=== PATIENT | male | born 1940 | race Caucasian/White ===

== ENCOUNTER 2018-02-20 01:26 | Day surgery (SDC) | payer OTHER ==
[~2018-02-20] VITALS: Ht 152.4 cm; Wt 75.0 kg
[~2018-02-20 01:26] MED LIST: ALBU90OI INH; AMLO5 PO; AMOCLA875 PO; ASPI81CH PO; ASPI81EC PO; ATOR10 PO; ATOR20 PO; BENZ100A PO; CLAR500 PO; DOCU100 PO; FIBE4P PO; FLUSAL2505 INH; GLIP2.5ER PO; GLIP5ER PO; GLYB3; HYDACE10B PO; HYDACE5325 PO; IBUP800 PO; INSUASPI SC; LISI10 PO; LISI20 PO; LISI5 PO; LISINOPRIL PO; METF500; METF500 PO; METFORMIN PO; METO100ER; METO50 PO; OMEP20ER PO; POLY17UD PO; PRAV20 PO; PRED20 PO; RAME8 PO; ROSU5 PO; RXAMOCLASU PO; SODCHL.65S; TAMS.4ER PO; TEMA15 PO; TEMA30 PO; TRADJENTA5 MG PO; TRAZ50 PO; TUSSIN DM COUG PO
[2018-02-20] MEDS ORDERED: ASPI81CH PO (12:55)
== END 2018-02-20 14:39 | disposition home or self-care (01) ==
LOC: MHTC 01:26
PROC: B213YZZ Fluoroscopy of Multiple Coronary Artery Bypass Grafts using Other Contrast (ICD-10-PCS; principal; 2018-02-20)
PROC: 4A023N7 Measurement of Cardiac Sampling and Pressure, Left Heart, Percutaneous Approach (ICD-10-PCS; principal; 2018-02-20)
PROC: B211YZZ Fluoroscopy of Multiple Coronary Arteries using Other Contrast (ICD-10-PCS; principal; 2018-02-20)
DX: I25.10 Atherosclerotic heart disease of native coronary artery without angina pectoris (principal); I35.0 Nonrheumatic aortic (valve) stenosis; E11.9 Type 2 diabetes mellitus without complications; E78.5 Hyperlipidemia, unspecified; I11.0 Hypertensive heart disease with heart failure; I50.9 Heart failure, unspecified; R55 Syncope and collapse; F17.210 Nicotine dependence, cigarettes, uncomplicated; Z79.84 Long term (current) use of oral hypoglycemic drugs
CPT/HCPCS: 93455; 99152; 99153; C1760; C1769; J1644; J2250; J3010; J7030; Q9967

== ENCOUNTER 2018-06-06 00:31 | Inpatient (IN) | payer OTHER ==
[~2018-06-06] VITALS: Ht 152.4 cm; Wt 72.6 kg
[2018-06-06 01:19] LABS: Hemoglobin 11.6 g/dL (13.5-17.5); Mean Corpuscular HGB 31.6 pg (26.0-34.0); Mean Corpuscular HGB Conc 33.1 g/dL (31.5-36.5); Mean Corpuscular Volume 95 fL (80-100); Mean Platelet Volume 10.7 fL (9.1-12.4); Platelet Count 181 K/mm3 (150-400); RDW Coefficient Variation 13.2 % (11.7-14.2); RDW Standard Deviation 46.4 fL (35.1-46.3); Red Blood Cell Count 3.67 M/mm3 (4.30-5.90); White Blood Cell Count 3.33 K/mm3 (4.00-11.30)
[2018-06-06 01:31] LABS: Albumin, Blood 3.2 g/dL (3.4-5.0); Albumin/Globulin Ratio 0.8 (0.8-1.8); Bilirubin, Total 0.4 mg/dL (0.1-1.0); Calcium, Blood 8.3 mg/dL (8.5-10.1); Creatinine, Blood 2.06 mg/dL (0.60-1.20); Potassium, Blood 4.6 mmol/L (3.5-5.5); Total Protein, Blood 7.2 g/dL (6.4-8.2)
[2018-06-06 01:49] LABS: BAND PERCENT MAN 21 % (0-8); BASOPHILS PERCENT MAN 0 % (0-2); EOSINOPHILS PERCENT MAN 0 % (0-6); LYMPHOCYTES ABSOLUTE MAN 0.29 K/mm3 (0.84-5.20); LYMPHOCYTES PERCENT MAN 9 % (21-46); METAMYELOCYTE ABSOLUTE MAN 0.03 K/mm3 (0.00-0.00); METAMYELOCYTE PERCENT MAN 1 % (0-0); MONOCYTES ABSOLUTE MAN 0.36 K/mm3 (0.16-1.47); MONOCYTES PERCENT MAN 11 % (4-13); NEUTROPHILS ABSOLUTE MAN 2.63 K/mm3 (1.96-9.15); SEG NEUTROPHILS PERCENT MAN 58 % (41-73); TOTAL CELLS COUNTED 100
[2018-06-06] MEDS ORDERED: LISI20 PO (04:22)
[2018-06-06] MEDS ORDERED: AMLO5 PO (04:22)
[2018-06-06] MEDS ORDERED: ASPI81CH PO (04:22)
[2018-06-06] MEDS ORDERED: RAME8 PO (04:22)
[2018-06-06] MEDS ORDERED: TAMS.4ER PO (04:23)
[2018-06-06] MEDS ORDERED: Sulfamethoxazo1 EAC4 PO (04:23)
[2018-06-06] MEDS ORDERED: TRADJENTA5 MG PO (04:23)
[2018-06-06] MEDS ORDERED: PRAV20 PO (04:24)
[2018-06-06] MEDS ORDERED: GABA100 PO (04:24)
[2018-06-06] MEDS ORDERED: Hydrocodone-Ap1 EA20 PO (04:24)
[2018-06-06] MEDS ORDERED: Omeprazole20 M1 PO (04:25)
[2018-06-07 05:08] LABS: BASOPHILS ABSOLUTE AUTO 0.01 K/mm3 (0.00-0.23); BASOPHILS PERCENT AUTO 0 % (0-2); Hematocrit 29.6 % (37.0-53.0); Hemoglobin 9.6 g/dL (13.5-17.5); LYMPHOCYTES ABSOLUTE AUTO 0.86 K/mm3 (0.84-5.20); LYMPHOCYTES PERCENT AUTO 17 % (21-46); MONOCYTES PERCENT AUTO 8 % (4-13); Mean Corpuscular HGB Conc 32.4 g/dL (31.5-36.5); Mean Corpuscular Volume 96 fL (80-100); Mean Platelet Volume 10.6 fL (9.1-12.4); Platelet Count 136 K/mm3 (150-400); RDW Coefficient Variation 13.2 % (11.7-14.2); RDW Standard Deviation 45.7 fL (35.1-46.3); White Blood Cell Count 4.95 K/mm3 (4.00-11.30)
[2018-06-07 05:10] LABS: EOSINOPHILS ABSOLUTE AUTO 0.01 K/mm3 (0.00-0.68); EOSINOPHILS PERCENT AUTO 0 % (0-6); IMMATURE GRAN ABSOLUTE AUTO 0.01 K/mm3 (0.00-0.10); IMMATURE GRAN PERCENT AUTO 0 % (0-1); NEUTROPHILS ABSOLUTE AUTO 3.66 K/mm3 (1.96-9.15); NEUTROPHILS PERCENT AUTO 74 % (41-73)
[2018-06-07 05:34] LABS: Calcium, Blood 7.6 mg/dL (8.5-10.1); Creatinine, Blood 1.37 mg/dL (0.60-1.20); Potassium, Blood 3.6 mmol/L (3.5-5.5)
[2018-06-07 17:15] LABS: Source, Urine Clean Catch
[2018-06-07 17:21] LABS: Appearance, Urine Clear (Clear); Bilirubin, Urine Neg (Neg); Blood, Urine Neg (Neg); Color, Urine Yellow (P-Yellow); Glucose Qualitative, Urine 2+ (Neg); Ketones, Urine Neg (Neg); Leukocyte Esterase, Urine Neg (Neg); Nitrite, Urine Neg (Neg); Protein, Urine 2+ (Neg); Specific Gravity, Urine 1.005 (1.003-1.022); Urobilinogen, Urine NORM (Normal)
[2018-06-07 17:36] LABS: Bacteria Rare /hpf; Red Blood Cells, Urine Not Seen /hpf (0-2); Squamous Epithelial Cells Few /hpf (Few)
[2018-06-08 04:38] LABS: Hemoglobin 9.1 g/dL (13.5-17.5); Mean Corpuscular HGB 31.6 pg (26.0-34.0); Mean Corpuscular HGB Conc 32.5 g/dL (31.5-36.5); Mean Corpuscular Volume 97 fL (80-100); Mean Platelet Volume 10.6 fL (9.1-12.4); Platelet Count 118 K/mm3 (150-400); RDW Coefficient Variation 12.9 % (11.7-14.2); RDW Standard Deviation 46.5 fL (35.1-46.3); Red Blood Cell Count 2.88 M/mm3 (4.30-5.90); White Blood Cell Count 5.99 K/mm3 (4.00-11.30)
[2018-06-08 04:52] LABS: Anion Gap 7 mmol/L (6-16); Blood Urea Nitrogen 16 mg/dL (8-24); CO2, Blood 29 mmol/L (21-32); Calcium, Blood 7.7 mg/dL (8.5-10.1); Chloride, Blood 104 mmol/L (98-108); Creatinine, Blood 1.07 mg/dL (0.60-1.20); Glomerular Filtration Rate >60 (60-); Glucose, Blood 123 mg/dL (70-99); Potassium, Blood 3.5 mmol/L (3.5-5.5); Sodium, Blood 140 mmol/L (136-145)
[2018-06-08] MEDS ORDERED: AMOCLA500 PO (11:49)
== END 2018-06-08 12:25 | disposition home or self-care (01) | DRG 350 ==
LOC: ER 00:31 → EDBEDREQSVC 03:20 → MEDS 03:21 → SURS 04:20 → MEDS 04:25 → SURS 10:48
PROVIDERS: Emergency Medicine; Internal Medicine; Surgery
PROC: 0YU50JZ Supplement Right Inguinal Region with Synthetic Substitute, Open Approach (ICD-10-PCS; principal; 2018-06-06 07:00)
DX: K40.30 Unilateral inguinal hernia, with obstruction, without gangrene, not specified as recurrent (principal); J69.0 Pneumonitis due to inhalation of food and vomit; I13.0 Hypertensive heart and chronic kidney disease with heart failure and stage 1 through stage 4 chronic kidney disease, or unspecified chronic kidney disease; N17.9 Acute kidney failure, unspecified; I50.32 Chronic diastolic (congestive) heart failure; I25.10 Atherosclerotic heart disease of native coronary artery without angina pectoris; J44.9 Chronic obstructive pulmonary disease, unspecified; E78.5 Hyperlipidemia, unspecified; N18.9 Chronic kidney disease, unspecified; K21.9 Gastro-esophageal reflux disease without esophagitis; M19.90 Unspecified osteoarthritis, unspecified site; D63.1 Anemia in chronic kidney disease; E11.22 Type 2 diabetes mellitus with diabetic chronic kidney disease; I35.0 Nonrheumatic aortic (valve) stenosis; G89.4 Chronic pain syndrome; N40.0 Benign prostatic hyperplasia without lower urinary tract symptoms; G47.00 Insomnia, unspecified; F17.210 Nicotine dependence, cigarettes, uncomplicated; Z86.73 Personal history of transient ischemic attack (TIA), and cerebral infarction without residual deficits; Z79.82 Long term (current) use of aspirin; Z79.899 Other long term (current) drug therapy; Z88.5 Allergy status to narcotic agent; Z88.8 Allergy status to other drugs, medicaments and biological substances; Z95.1 Presence of aortocoronary bypass graft
CPT/HCPCS: 36415; 71046; 74176; 80048; 80053; 81001; 82947; 83690; 85025; 85027; 93005; 93010; 96374; 96375; 99285-25; C1781; C9113; J0295; J0330; J1815; J2250; J2370; J2405; J2550; J2710; J2765; J3010; J7030

== ENCOUNTER 2019-08-14 11:29 | Emergency (ER) | payer OTHER ==
[~2019-08-14] VITALS: Ht 152.4 cm; Wt 72.6 kg
[~2019-08-14 11:29] MED LIST changes: +AMOCLA500 PO; +GABA100 PO; +Hydrocodone-Ap1 EA20 PO; +Omeprazole20 M1 PO; +Sulfamethoxazo1 EAC4 PO
[2019-08-14 11:53] LABS: BASOPHILS ABSOLUTE AUTO 0.05 K/mm3 (0.00-0.23); BASOPHILS PERCENT AUTO 1 % (0-2); EOSINOPHILS ABSOLUTE AUTO 0.16 K/mm3 (0.00-0.68); EOSINOPHILS PERCENT AUTO 3 % (0-6); Hematocrit 34.7 % (37.0-53.0); Hemoglobin 11.3 g/dL (13.5-17.5); IMMATURE GRAN ABSOLUTE AUTO 0.02 K/mm3 (0.00-0.10); IMMATURE GRAN PERCENT AUTO 0 % (0-1); LYMPHOCYTES PERCENT AUTO 30 % (21-46); MONOCYTES ABSOLUTE AUTO 0.21 K/mm3 (0.16-1.47); MONOCYTES PERCENT AUTO 3 % (4-13); Mean Corpuscular HGB 32.3 pg (26.0-34.0); Mean Corpuscular HGB Conc 32.6 g/dL (31.5-36.5); Mean Corpuscular Volume 99 fL (80-100); Mean Platelet Volume 10.7 fL (9.1-12.4); NEUTROPHILS PERCENT AUTO 63 % (41-73); Platelet Count 116 K/mm3 (150-400); RDW Coefficient Variation 12.9 % (11.7-14.2); RDW Standard Deviation 46.8 fL (35.1-46.3); White Blood Cell Count 6.24 K/mm3 (4.00-11.30)
[2019-08-14 12:02] LABS: Alanine Aminotransfer (ALT/SGP 17 U/L (12-78); Albumin, Blood 3.2 g/dL (3.4-5.0); Alk Phos 71 U/L (50-136); Anion Gap 6 mmol/L (6-16); Aspartate Aminotrans (AST/SGOT 15 U/L (12-37); Bilirubin, Total 0.2 mg/dL (0.1-1.0); Blood Urea Nitrogen 11 mg/dL (8-24); Bun/Creatinine Ratio 11.8 (12.0-20.0); CO2, Blood 23 mmol/L (21-32); Calcium, Blood 7.9 mg/dL (8.5-10.1); Chloride, Blood 112 mmol/L (98-108); Creatinine, Blood 0.93 mg/dL (0.60-1.20); Globulin, Blood 3.1 g/dL (2.2-4.0); Glomerular Filtration Rate >60 (60-); Glucose, Blood 215 mg/dL (70-99); Potassium, Blood 3.9 mmol/L (3.5-5.5); Sodium, Blood 141 mmol/L (136-145); Total Protein, Blood 6.3 g/dL (6.4-8.2); Troponin I <0.015 ng/mL (0.000-0.040)
[2019-08-14] MEDS ORDERED: TRAZ50 PO (12:04)
[2019-08-14] MEDS ORDERED: Prednisone20 MG PO (14:21)
[2019-08-14] MEDS ORDERED: ALBU90OI INH (14:21)
[2019-08-14] MEDS ORDERED: Pulmicort Flex90 MCG NEB (14:21)
== END 2019-08-14 14:37 | disposition home or self-care (01) ==
LOC: ER 11:29
PROVIDERS: Emergency Medicine
DX: J44.9 Chronic obstructive pulmonary disease, unspecified (principal); E11.9 Type 2 diabetes mellitus without complications; I50.9 Heart failure, unspecified; F17.200 Nicotine dependence, unspecified, uncomplicated; Z86.73 Personal history of transient ischemic attack (TIA), and cerebral infarction without residual deficits; Z88.5 Allergy status to narcotic agent; Z79.899 Other long term (current) drug therapy; Z79.82 Long term (current) use of aspirin
CPT/HCPCS: 36415; 71046; 80053; 83880; 84484; 85025; 93005; 93010; 94640; 99285-25

== ENCOUNTER 2019-12-01 06:00 | Day surgery (SDC) | payer OTHER ==
[~2019-12-01] VITALS: Ht 152.4 cm; Wt 76.8 kg
[~2019-12-01 06:00] MED LIST changes: +Prednisone20 MG PO; +Pulmicort Flex90 MCG NEB
--- NOTE | 2019-12-01 07:25 | NUR ---
Ambulatory in Day Surgery. Surgical site prepped with 2% Chlorhexidine cloth wipe. History, Chart, Medications and Allergies reviewed before start of procedure.Patient confirms NPO status and agrees with scheduled surgery. Pre-Op teaching done. Pt verbalizes understanding. Patient States Post-Procedure ride home has been arranged. Patient reports completing Chlorhexadine shower X2 prior to admission to hospital. THE PATIENT WAS GIVEN A BREATHING TREATMENT BEFORE SURGERY.
--- NOTE | 2019-12-01 12:30 | NUR ---
patient godfrey was called and told patient was ready for discharge and she said she would be on her way shortly.
--- NOTE | 2019-12-01 13:36 | NUR ---
Patient up to Ambulate independently. Gait steady. Discharge instructions reviewed with patient. Patient verbalizes understanding. Copy given to patient to take home. Dressing to procedure site clean, dry, intact with no visible drainage, swelling, erythema or bruising noted. Patient States Post-Procedure ride home has been arranged with Billie, patient is currently awaiting contact centre supervisor.
--- NOTE | 2019-12-02 08:37 | NUR ---
12/02/19 0837 Mary Martinez VERIFICATIONS: EDIT CHART.
== END 2019-12-01 22:49 | disposition home or self-care (01) ==
LOC: ORSCMMR 06:00 → ORD 07:30 → ORSCMMR 07:30
PROVIDERS: Surgery
PROC: 0YU54JZ Supplement Right Inguinal Region with Synthetic Substitute, Percutaneous Endoscopic Approach (ICD-10-PCS; principal; 2019-12-01 07:30)
PROC: 8E0W4CZ Robotic Assisted Procedure of Trunk Region, Percutaneous Endoscopic Approach (ICD-10-PCS; principal; 2019-12-01 07:30)
DX: K40.91 Unilateral inguinal hernia, without obstruction or gangrene, recurrent (principal); I10 Essential (primary) hypertension; E11.9 Type 2 diabetes mellitus without complications; N18.9 Chronic kidney disease, unspecified; I25.10 Atherosclerotic heart disease of native coronary artery without angina pectoris; J44.9 Chronic obstructive pulmonary disease, unspecified; F17.210 Nicotine dependence, cigarettes, uncomplicated; Z79.899 Other long term (current) drug therapy; Z79.82 Long term (current) use of aspirin; Z86.73 Personal history of transient ischemic attack (TIA), and cerebral infarction without residual deficits
CPT/HCPCS: 49651; S2900; 82947; C1781; J0690; J2405; J2704; J2765; J3010; J7030; J7120

== ENCOUNTER 2020-04-11 00:11 | Day surgery (SDC) | payer OTHER | END 2020-04-11 22:37 | disposition home or self-care (01) | LOC: WOUND 00:11 | DX: S81.801A Unspecified open wound, right lower leg, initial encounter (principal); X58.XXXA Exposure to other specified factors, initial encounter | CPT/HCPCS: G0463 ==

== ENCOUNTER 2020-06-30 00:32 | Day surgery (SDC) | payer OTHER | END 2020-06-30 12:00 | disposition home or self-care (01) | LOC: WOUND 00:32 | DX: S81.801D Unspecified open wound, right lower leg, subsequent encounter (principal); E11.622 Type 2 diabetes mellitus with other skin ulcer; L97.211 Non-pressure chronic ulcer of right calf limited to breakdown of skin; L97.111 Non-pressure chronic ulcer of right thigh limited to breakdown of skin; E11.42 Type 2 diabetes mellitus with diabetic polyneuropathy; I13.0 Hypertensive heart and chronic kidney disease with heart failure and stage 1 through stage 4 chronic kidney disease, or unspecified chronic kidney disease; E11.22 Type 2 diabetes mellitus with diabetic chronic kidney disease; J44.9 Chronic obstructive pulmonary disease, unspecified; I50.9 Heart failure, unspecified; N18.9 Chronic kidney disease, unspecified; F17.200 Nicotine dependence, unspecified, uncomplicated; Z79.899 Other long term (current) drug therapy; Z79.84 Long term (current) use of oral hypoglycemic drugs | CPT/HCPCS: G0463 ==

== ENCOUNTER 2020-07-06 00:15 | Day surgery (SDC) | payer OTHER | END 2020-07-06 22:36 | disposition home or self-care (01) | LOC: WOUND 00:15 | DX: S81.801D Unspecified open wound, right lower leg, subsequent encounter (principal); L97.211 Non-pressure chronic ulcer of right calf limited to breakdown of skin; L97.111 Non-pressure chronic ulcer of right thigh limited to breakdown of skin | CPT/HCPCS: G0463 ==

== ENCOUNTER 2020-07-27 00:48 | Day surgery (SDC) | payer OTHER | END 2020-07-27 12:00 | disposition home or self-care (01) | LOC: WOUND 00:48 | DX: S81.801D Unspecified open wound, right lower leg, subsequent encounter (principal); E11.42 Type 2 diabetes mellitus with diabetic polyneuropathy; E11.22 Type 2 diabetes mellitus with diabetic chronic kidney disease; I13.0 Hypertensive heart and chronic kidney disease with heart failure and stage 1 through stage 4 chronic kidney disease, or unspecified chronic kidney disease; J44.9 Chronic obstructive pulmonary disease, unspecified; N18.9 Chronic kidney disease, unspecified; I50.9 Heart failure, unspecified; F17.200 Nicotine dependence, unspecified, uncomplicated; E66.9 Obesity, unspecified; Z68.34 Body mass index [BMI] 34.0-34.9, adult; Z79.899 Other long term (current) drug therapy; Z79.82 Long term (current) use of aspirin | CPT/HCPCS: G0463 ==

== ENCOUNTER 2020-09-25 20:38 | Emergency (ER) | payer OTHER ==
[~2020-09-25] VITALS: Ht 152.4 cm; Wt 72.6 kg
[2020-09-25] MEDS ORDERED: MUPIROCIN15 GM TOP (22:45)
== END 2020-09-25 23:45 | disposition home or self-care (01) ==
LOC: ER 20:38
DX: L30.9 Dermatitis, unspecified (principal); E11.9 Type 2 diabetes mellitus without complications; I50.9 Heart failure, unspecified; F17.210 Nicotine dependence, cigarettes, uncomplicated; Z95.1 Presence of aortocoronary bypass graft; Z86.73 Personal history of transient ischemic attack (TIA), and cerebral infarction without residual deficits; Z79.82 Long term (current) use of aspirin; Z79.899 Other long term (current) drug therapy; Z88.5 Allergy status to narcotic agent
CPT/HCPCS: 99283

== ENCOUNTER → 2020-09-26 | Outpatient (CLI) | payer OTHER ==
[~2020-09-26] MED LIST changes: +MUPIROCIN15 GM TOP
[2020-09-26 15:02] LABS: Source, Urine Clean Catch
[2020-09-26 17:52] LABS: Appearance, Urine Clear (Clear); Bilirubin, Urine Neg (Neg); Blood, Urine Neg (Neg); Color, Urine Yellow (P-Yellow); Glucose Qualitative, Urine 3+ (Neg); Ketones, Urine 1+ (Neg); Leukocyte Esterase, Urine Neg (Neg); Nitrite, Urine Neg (Neg); Protein, Urine 2+ (Neg); Specific Gravity, Urine 1.015 (1.003-1.022); Urobilinogen, Urine NORM (Normal); pH, Urine 6.5 (5.0-8.0)
[2020-09-26 18:14] LABS: Bacteria Not Seen /hpf; Red Blood Cells, Urine Not Seen /hpf (0-2); Squamous Epithelial Cells Few /hpf (Few); White Blood Cells, Urine Not Seen /hpf (0-5)
== END | disposition home or self-care (01) ==
LOC: LAB SHORT 13:59 → LAB 13:59
PROVIDERS: Family Medicine
DX: R30.9 Painful micturition, unspecified (principal)
CPT/HCPCS: 81001

== ENCOUNTER 2021-09-20 11:17 | Emergency (ER) | payer OTHER ==
[~2021-09-20] VITALS: Ht 157.5 cm; Wt 68.0 kg
[2021-09-20 12:05] LABS: BASOPHILS ABSOLUTE AUTO 0.04 K/mm3 (0.00-0.23); BASOPHILS PERCENT AUTO 1 % (0-2); EOSINOPHILS ABSOLUTE AUTO 0.09 K/mm3 (0.00-0.68); EOSINOPHILS PERCENT AUTO 1 % (0-6); Hematocrit 34.9 % (37.0-53.0); Hemoglobin 11.4 g/dL (13.5-17.5); IMMATURE GRAN ABSOLUTE AUTO 0.01 K/mm3 (0.00-0.10); IMMATURE GRAN PERCENT AUTO 0 % (0-1); LYMPHOCYTES ABSOLUTE AUTO 2.07 K/mm3 (0.84-5.20); LYMPHOCYTES PERCENT AUTO 31 % (21-46); MONOCYTES ABSOLUTE AUTO 0.33 K/mm3 (0.16-1.47); MONOCYTES PERCENT AUTO 5 % (4-13); Mean Corpuscular HGB 31.1 pg (26.0-34.0); Mean Corpuscular HGB Conc 32.7 g/dL (31.5-36.5); Mean Corpuscular Volume 95 fL (80-100); Mean Platelet Volume 11.2 fL (9.1-12.4); NEUTROPHILS ABSOLUTE AUTO 4.07 K/mm3 (1.96-9.15); NEUTROPHILS PERCENT AUTO 62 % (41-73); Platelet Count 123 K/mm3 (150-400); RDW Coefficient Variation 13.9 % (11.7-14.2); RDW Standard Deviation 49.1 fL (35.1-46.3); Red Blood Cell Count 3.67 M/mm3 (4.30-5.90); White Blood Cell Count 6.61 K/mm3 (4.00-11.30)
[2021-09-20 12:18] LABS: Alanine Aminotransfer (ALT/SGP 15 U/L (12-78); Albumin, Blood 3.3 g/dL (3.4-5.0); Albumin/Globulin Ratio 0.9 (0.8-1.8); Alk Phos 95 U/L (50-136); Anion Gap 5 mmol/L (6-16); Aspartate Aminotrans (AST/SGOT 27 U/L (12-37); Bilirubin, Total 0.5 mg/dL (0.1-1.0); Blood Urea Nitrogen 11 mg/dL (8-24); Bun/Creatinine Ratio 12.2 (12.0-20.0); CO2, Blood 27 mmol/L (21-32); Calcium, Blood 8.7 mg/dL (8.5-10.1); Chloride, Blood 109 mmol/L (98-108); Creatinine, Blood 0.91 mg/dL (0.60-1.20); Globulin, Blood 3.8 g/dL (2.2-4.0); Glomerular Filtration Rate >60 (60-); Glucose, Blood 200 mg/dL (70-99); Potassium, Blood 4.6 mmol/L (3.5-5.5); Sodium, Blood 141 mmol/L (136-145); Total Protein, Blood 7.1 g/dL (6.4-8.2)
[2021-09-20 12:31] LABS: Troponin I <0.015 ng/mL (0.000-0.040)
[2021-09-20 14:16] LABS: Source, Urine Clean Catch
[2021-09-20 14:33] LABS: Appearance, Urine Clear (Clear); Bilirubin, Urine Neg (Neg); Blood, Urine Neg (Neg); Color, Urine Yellow (P-Yellow); Glucose Qualitative, Urine 4+ (Neg); Ketones, Urine Neg (Neg); Leukocyte Esterase, Urine Neg (Neg); Nitrite, Urine Neg (Neg); Protein, Urine 3+ (Neg); Urobilinogen, Urine NORM (Normal)
[2021-09-20 14:47] LABS: Bacteria Mod /hpf; Cholesterol Crystals Rare /hpf; Red Blood Cells, Urine Not Seen /hpf (0-2); Squamous Epithelial Cells Few /hpf (Few); White Blood Cells, Urine 0-2 /hpf (0-5)
== END 2021-09-20 14:42 | disposition home or self-care (01) ==
LOC: ER 11:17
PROVIDERS: Physician Assistant
DX: R55 Syncope and collapse (principal); E11.9 Type 2 diabetes mellitus without complications; I50.9 Heart failure, unspecified; F17.210 Nicotine dependence, cigarettes, uncomplicated; Z86.73 Personal history of transient ischemic attack (TIA), and cerebral infarction without residual deficits; Z88.5 Allergy status to narcotic agent; Z79.899 Other long term (current) drug therapy
CPT/HCPCS: 71045; 80053; 81001; 84484; 85025; 87086; 93005; 93010; 99284-25

== ENCOUNTER 2022-04-13 09:47 | Emergency (ER) | payer OTHER ==
[~2022-04-13] VITALS: Ht 160 cm; Wt 68.0 kg
[2022-04-13 10:36] LABS: BASOPHILS ABSOLUTE AUTO 0.04 K/mm3 (0.00-0.23); BASOPHILS PERCENT AUTO 1 % (0-2); EOSINOPHILS ABSOLUTE AUTO 0.21 K/mm3 (0.00-0.68); EOSINOPHILS PERCENT AUTO 3 % (0-6); Hematocrit 34.4 % (37.0-53.0); Hemoglobin 11.4 g/dL (13.5-17.5); IMMATURE GRAN ABSOLUTE AUTO 0.01 K/mm3 (0.00-0.10); IMMATURE GRAN PERCENT AUTO 0 % (0-1); LYMPHOCYTES ABSOLUTE AUTO 1.89 K/mm3 (0.84-5.20); LYMPHOCYTES PERCENT AUTO 30 % (21-46); MONOCYTES ABSOLUTE AUTO 0.41 K/mm3 (0.16-1.47); MONOCYTES PERCENT AUTO 6 % (4-13); Mean Corpuscular HGB 30.9 pg (26.0-34.0); Mean Corpuscular HGB Conc 33.1 g/dL (31.5-36.5); Mean Corpuscular Volume 93 fL (80-100); Mean Platelet Volume 10.9 fL (9.1-12.4); NEUTROPHILS ABSOLUTE AUTO 3.85 K/mm3 (1.96-9.15); NEUTROPHILS PERCENT AUTO 60 % (41-73); Platelet Count 117 K/mm3 (150-400); RDW Coefficient Variation 12.7 % (11.7-14.2); RDW Standard Deviation 43.8 fL (35.1-46.3); Red Blood Cell Count 3.69 M/mm3 (4.30-5.90); White Blood Cell Count 6.41 K/mm3 (4.00-11.30)
[2022-04-13 10:49] LABS: Albumin, Blood 3.2 g/dL (3.4-5.0); Bilirubin, Total 0.2 mg/dL (0.1-1.0); Bun/Creatinine Ratio 22.2 (12.0-20.0); Calcium, Blood 8.8 mg/dL (8.5-10.1); Creatinine, Blood 1.08 mg/dL (0.60-1.20); Globulin, Blood 3.1 g/dL (2.2-4.0); Potassium, Blood 4.4 mmol/L (3.5-5.5); Total Protein, Blood 6.3 g/dL (6.4-8.2)
[2022-04-13 12:18] LABS: Source, Urine Voided
[2022-04-13 12:25] LABS: Appearance, Urine Clear (Clear); Bilirubin, Urine Neg (Neg); Blood, Urine Neg (Neg); Color, Urine Yellow (P-Yellow); Glucose Qualitative, Urine 4+ (Neg); Ketones, Urine Neg (Neg); Leukocyte Esterase, Urine Neg (Neg); Nitrite, Urine Neg (Neg); Protein, Urine 3+ (Neg); Urobilinogen, Urine NORM (Normal); pH, Urine 6.5 (5.0-8.0)
[2022-04-13 12:37] LABS: Bacteria Rare /hpf; Red Blood Cells, Urine 0-2 /hpf (0-2); Squamous Epithelial Cells Rare /hpf (Few); White Blood Cells, Urine 0-2 /hpf (0-5)
[2022-04-13] MEDS ORDERED: CEPH500 PO (13:03)
[2022-04-13] MEDS ORDERED: Lasix20 MG PO (13:03)
== END 2022-04-13 14:54 | disposition home or self-care (01) ==
LOC: ER 09:47
PROVIDERS: Emergency Medicine
DX: R60.0 Localized edema (principal); L03.116 Cellulitis of left lower limb; R07.9 Chest pain, unspecified; E11.9 Type 2 diabetes mellitus without complications; I50.9 Heart failure, unspecified; F17.210 Nicotine dependence, cigarettes, uncomplicated; Z95.1 Presence of aortocoronary bypass graft; Z79.899 Other long term (current) drug therapy; Z88.5 Allergy status to narcotic agent
CPT/HCPCS: 71045; 80053; 81001; 83880; 84484; 85025; 93005; 93010; A9270

== ENCOUNTER 2022-11-18 10:36 | Inpatient (IN) | payer OTHER ==
[~2022-11-18] VITALS: Ht 160 cm; Wt 62.7 kg
[~2022-11-18 10:36] MED LIST changes: +CEPH500 PO; +Lasix20 MG PO
[2022-11-18 11:43] LABS: BASOPHILS ABSOLUTE AUTO 0.04 K/mm3 (0.00-0.23); BASOPHILS PERCENT AUTO 0 % (0-2); EOSINOPHILS PERCENT AUTO 0 % (0-6); Hemoglobin 13.8 g/dL (13.5-17.5); IMMATURE GRAN ABSOLUTE AUTO 0.12 K/mm3 (0.00-0.10); IMMATURE GRAN PERCENT AUTO 1 % (0-1); LYMPHOCYTES ABSOLUTE AUTO 1.01 K/mm3 (0.84-5.20); LYMPHOCYTES PERCENT AUTO 5 % (21-46); MONOCYTES ABSOLUTE AUTO 1.15 K/mm3 (0.16-1.47); MONOCYTES PERCENT AUTO 5 % (4-13); Mean Corpuscular HGB 30.9 pg (26.0-34.0); Mean Corpuscular HGB Conc 34.5 g/dL (31.5-36.5); Mean Corpuscular Volume 90 fL (80-100); Mean Platelet Volume 11.1 fL (9.1-12.4); NEUTROPHILS ABSOLUTE AUTO 20.02 K/mm3 (1.96-9.15); NEUTROPHILS PERCENT AUTO 90 % (41-73); Platelet Count 122 K/mm3 (150-400); RDW Coefficient Variation 12.9 % (11.7-14.2); Red Blood Cell Count 4.47 M/mm3 (4.30-5.90); White Blood Cell Count 22.34 K/mm3 (4.00-11.30)
[2022-11-18 12:04] LABS: Alanine Aminotransfer (ALT/SGP 22 U/L (12-78); Albumin, Blood 3.3 g/dL (3.4-5.0); Albumin/Globulin Ratio 0.9 (0.8-1.8); Alk Phos 118 U/L (50-136); Anion Gap 12 mmol/L (6-16); Aspartate Aminotrans (AST/SGOT 55 U/L (12-37); Bilirubin, Total 0.4 mg/dL (0.1-1.0); Blood Urea Nitrogen 20 mg/dL (8-24); Bun/Creatinine Ratio 16.3 (12.0-20.0); CO2, Blood 21 mmol/L (21-32); Chloride, Blood 108 mmol/L (98-108); Creatinine, Blood 1.23 mg/dL (0.60-1.20); Ethanol (Alcohol), Blood, Med <3 mg/dL; Globulin, Blood 3.6 g/dL (2.2-4.0); Glomerular Filtration Rate 59 (60-); Glucose, Blood 419 mg/dL (70-99); Potassium, Blood 4.7 mmol/L (3.5-5.5); Sodium, Blood 141 mmol/L (136-145); Total Protein, Blood 6.9 g/dL (6.4-8.2)
[2022-11-18] MEDS ORDERED: GLUCOPHAGE1000 M1 PO (12:13)
[2022-11-18] MEDS ORDERED: TRAZ100 PO (12:13)
[2022-11-18 12:18] LABS: International Normalized Ratio 1.02; Prothrombin Time Results 10.7 Sec (9.7-11.5)
[2022-11-18 12:34] LABS: Creatine Kinase MB 44.2 ng/mL (0.0-3.6)
[2022-11-18 12:45] LABS: Base Excess Venous -5.6 mmol/L; Bicarbonate Venous 19.7 mmol/L (24.0-30.0); PCO2 Venous 48.9 mmHg (38-42); pH Blood Venous 7.25 (7.34-7.37)
[2022-11-18 12:51] LABS: Creatine Kinase MB Index 3.3 (0.0-4.0)
--- NOTE | 2022-11-18 17:53 | NUR ---
NURSING PCU DAYSHIFT SUMMARY: Pt arrived from ER at approx 1635 via gurney accompanied by RN. Leonel to unit bed w/slider. Noted R side deficit w/gross movement of L exts, non verbal, R facial droop, b/l pupils sluggish, unable to follow commands. Pt disheveled and incontinent of B/B, skin fragile, scattered bruising t/o, rash noted to back, non blanchable pressure wounds to RFA, R knee, L elbow. Tele in place, NSR w/HR 80's, SBP 120's, no noted edema. L/S cta t/o, respirations shallow, snoring while awake, O2 sat upper 90's on RA. Abd soft, BT+, attends in place. PIV x2, Nicardipine infusing at 5mg/hr upon arrival, NS at 200 mls/hr. Bedbath completed at arrival, nicardipine gtt discontinued and 2nd bag of NS at 200 mls/hr held per d/o, maintenance fluids continue at 75 mls/hr. Pt appears to resting comfortably at this time. Seizure pads in place and bed alarm set for safety purposes. Cont to monitor until rpt is given to NOC RN.
[2022-11-19 04:08] LABS: BASOPHILS ABSOLUTE AUTO 0.02 K/mm3 (0.00-0.23); BASOPHILS PERCENT AUTO 0 % (0-2); EOSINOPHILS PERCENT AUTO 0 % (0-6); Hematocrit 34.7 % (37.0-53.0); Hemoglobin 12.1 g/dL (13.5-17.5); IMMATURE GRAN ABSOLUTE AUTO 0.15 K/mm3 (0.00-0.10); IMMATURE GRAN PERCENT AUTO 1 % (0-1); LYMPHOCYTES ABSOLUTE AUTO 1.75 K/mm3 (0.84-5.20); LYMPHOCYTES PERCENT AUTO 9 % (21-46); MONOCYTES ABSOLUTE AUTO 0.77 K/mm3 (0.16-1.47); MONOCYTES PERCENT AUTO 4 % (4-13); Mean Corpuscular HGB 31.4 pg (26.0-34.0); Mean Corpuscular HGB Conc 34.9 g/dL (31.5-36.5); Mean Corpuscular Volume 90 fL (80-100); NEUTROPHILS ABSOLUTE AUTO 17.78 K/mm3 (1.96-9.15); NEUTROPHILS PERCENT AUTO 87 % (41-73); Platelet Count 114 K/mm3 (150-400); RDW Coefficient Variation 13.1 % (11.7-14.2); RDW Standard Deviation 42.9 fL (35.1-46.3); Red Blood Cell Count 3.85 M/mm3 (4.30-5.90); White Blood Cell Count 20.47 K/mm3 (4.00-11.30)
[2022-11-19 04:34] LABS: U Amphetamine Screen Not Detected; U Barbituate Screen Not Detected; U Benzodiazapine Screen Not Detected; U Buprenorphine Screen Not Detected; U Cannabinoids Screen Not Detected; U Cocaine Screen Not Detected; U Methadone Screen Not Detected; U Methamphetamine Screen Not Detected; U Opiates Screen Not Detected; U Oxycodone Screen Not Detected; U Phencyclidine Screen Not Detected; U Propoxyphene Screen Not Detected
[2022-11-19 04:38] LABS: Albumin, Blood 2.8 g/dL (3.4-5.0); Albumin/Globulin Ratio 0.8 (0.8-1.8); Bilirubin, Total 0.4 mg/dL (0.1-1.0); Bun/Creatinine Ratio 17.6 (12.0-20.0); Calcium, Blood 8.1 mg/dL (8.5-10.1); Creatinine, Blood 1.08 mg/dL (0.60-1.20); Globulin, Blood 3.4 g/dL (2.2-4.0); Potassium, Blood 4.2 mmol/L (3.5-5.5); Total Protein, Blood 6.2 g/dL (6.4-8.2)
--- NOTE | 2022-11-19 06:48 | NUR ---
SHIFT SUMMARY PATIENT RESPONSIVE TO PAINFUL STIMULI, WILL PULL AWAY AT TIMES. VITALS STABLE AND PATIENT REMAINS ON ROOM AIR WITH O2 SAT >90%, WILL SNORE WHILE EYES ARE OPEN. RIGHT SIDE FLACCID AND LEFT SIDE HAS RIGID NONPURPOSEFUL MOVEMENTS. PATIENT DOES NOT FOLLOW COMMANDS. ATTENDS IN PLACE, PATIENT INCONTNINENT OF BOWEL AND BLADDER. UPDATED SON THIS AM ON PATIENT'S CONDITION. NO OTHER SIGNIFICANT CHANGES, WILL REPORT TO DAY SHIFT RN.
--- NOTE | 2022-11-19 08:56 | NUR ---
NURSING PCU DAYSHIFT: Assumed care of pt at approx 0700. Arouses to physical stimuli, nonverbal, does not follow commands. R side deficit, unchanged since admission, gross movement of L ext's w/intermittent contractions/spasms of LUE. B/L pupils reactive though sluggish. Skin is fragile, pressure wounds noted to RFA, R knee, and L elbow, scattered bruising t/o, rash to back. Tele in place, SB, SBP 140's, murmur present, no noted edema. L/S cta t/o, O2 sat upper 90's on RA, respirations even and unlabored. Abd soft, BT+, incontinent of urine and stool, attends in place. PIV x2, s/l w/IV keppra as scheduled. Pt appears to be resting comfortably at this time. Unable to use call light, frequent rounding required. Seizure pads in place for safety against rails. Awaiting rounding from PMD, telephone update provided to family, cont to monitor for changes.
--- NOTE | 2022-11-19 11:45 | NUR ---
Viewed Pt from door way. Pt resting in bed with his eyes closed. No S/S of distress at this time. Spoke with Primary RN Corina and discussed case. Pt unresponsive. Plan for Dr Velázquez to call family and discussed goals of care. Corina will call this RN after hearing back from Dr Velázquez. Palliative Care will remain available
--- NOTE | 2022-11-19 16:47 | NUR ---
Case Conference Note Spoke with Dr Velázquez and discussed case. Dr Velázquez has had difficulty with reaching Pt's son. Family may benefit from considering comfort care for Pt. Called and spoke with Pt's son Bertram Silva. Provided update and reviewed current plan of care. Discussed recommendations to consider comfort care. Educated on comfort care philosophy. Bertram reports having a conversation with Pt recently and Pt's wishes would be to focus on comfort at this time. Son Bertram reports having cousins who own [employer] and [place]. He reports Pt stated he never wanted to rely on others to care for him. Bertram reports living in [place] and runs a restaurant and [employer] service and at times can be difficult to reach. Continued supportive conversation. Confirmed with so Bertram goals are comfort care. Called and spoke with Pt's sister Clemencia. Provided update and discussed plan for comfort care. Sister Clemencia appears to struggle with understanding and education re-enforced several times. After a few minutes Clemencia appears to understand and reports being in agreement with comfort care. Placed comfort care order, comfort care order set, D/C maintenance medications per V/O from Dr Velázquez. Consulted with hospital pharmacist Hermelinda regarding Pt's morphine and hydromorphine allergies. She reports Pt has recieved these medications in the past but recommends trial of Roxicodone oral solution first. Palliative Care will remain available.
--- NOTE | 2022-11-19 18:29 | NUR ---
NURSING PCU DAYSHIFT SUMMARY: Repiratory, cardiac, and neuro status unchanged t/o the shift. Telephone updates provided to the family t/o shift. Family/PMD worked with family to discuss plan of care, decision was made to transition to CC. Pt continues to rest comfortably and appears to have no pain or distress. Cont to monitor until rpt is given to NOC RN.
--- NOTE | 2022-11-20 00:01 | NUR ---
UPDATE REPORT GIVEN TO ROOM 352 RN. PT TO BE TRANSPORTED BY BED TO ROOM 352 WITH ALL BELONGINGS AT THIS TIME.
--- NOTE | 2022-11-20 00:21 | NUR ---
PT ARRIVES FROMN PCU 10 VIA HOSPITAL BED. UPON TRANSFER THE PT IS OBTUNDED AND DOES NOT RESPOND TO VERBAL STIMULI. UNABLE TO ASSESS PTS ORIENTATION GIVEN PTS CURRENT NEUROLOGICAL STATUS. PT HAS A CONDOM CATHETER IN PLACE, PATENT AND DRAINING TO GRAVITY. THE PT HAS SCABS AND BRUSING SCATTERED T/O THE BODY. THE PT APPEARS TO BE IN NO ACUTE DISTRESS UPON TRANSFER, WELL THE PT DISPLAYS NO SIGNS OF AIR HUNGER AT THIS TIME. WILL CONTINUE TO MONITOR AND TREAT ACCORDING TO EMAR.
--- NOTE | 2022-11-20 05:35 | NUR ---
SHIFT SUMMARY; PT WAS A PCU TRANSFER LAST NIGHT AT 0010. SINCE TRANSFER THERE HAS NOT BEEN ANY ACUTE EVENTS. THE PTS IS OBTUNDED AND DOES NOT RESPOND TO ANY VERBAL STIMULI. THE PT HAS RIGHT SIDED WEAKNESS WELL THE LEFT SIDE IS SPASTIC AND RIGID. THE PT IS INCONTINENT, CONDOM CATHETER IN PLACE, THE CATHETER IS PATENT AND DRAINGING TO GRAVITY. MEDICATE PER EMAR FOR AIRHUNGER PRN, PTS BREATHING IS CURRENTLY UNLABORED. THE PT IS CURRENTLY RESTING IN BED, THE PT DOES NOT APPEAR TO BE SOB OR IN ANY PAIN. THE BED IS IN THE LOWEST POSITION, THE BED ALARM IS ON, SEIZURE PADS ARE IN PLACE AND THE CALL LIGHT IS WITHIN REACH.
--- NOTE | 2022-11-20 09:49 | NUR ---
Comfort Care Visit Pt resting in bed and is mostly non responsive. Pt briefly opens his eyes when his name is called out but quickly closes them. Pt appears comfortable with no S/S of distress at this time. Spoke with Primary RN ELICEO Walker and discussed case. Order Indwelling Yang per protocol for comfort. Palliative Care will remain available.
--- NOTE | 2022-11-20 15:51 | NUR ---
Received call from Primary LULU Walker requesting assistance with symptom management. Pt resting in bed and appears to be experiencing terminal restlessness. Reviewed comfort medications. Denise offers comfort medication and Pt is repositioned. Significant secretions noted. Received call from Primary LULU Walker a few minutes after leaving Pt reporting Pt has passed. Called and spoke with Pt's sister Clemencia. Offered condolences and answered questions. Clemencia reports wishes for home is [facility]. Called and spoke with Pt's son Bertram. Offered condolences and therapeutic listening. 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 Palliative Care will remain available
--- NOTE | 2022-11-20 15:53 | NUR ---
Minutes after patient's demise, I am cantacted by Palliative Care Rn Jules and asked to bring comfort to patient's family. Family are not present in the rm. I provide prayer for patient and comfort for the family. I will continue to remain available to family.
--- NOTE | 2022-11-20 15:59 | NUR ---
Increased oral secretions, placed scopalamine patch on left upper chest. Patient resting comfortably this morning, this afternoon Patient had increased oral secretions, Atropine gtts given, suctioned oral secretions. Repositioned patient to facilitate postural drainage. Patient appeared painful, and hallucinating, PRN Oxy & Haldol given, went to reassess pain and patient was found without pulse & respirations. 2x RN to confirm, time of 1520. Palliative nurse called sister, family chose [facility] for home.
--- NOTE | 2022-11-20 19:26 | NUR ---
HOME TRANSPORTER HERE, TAKES BODY. CHARGE NURSE TAKES INFO.
== END 2022-11-20 15:20 | DRG 64 ==
LOC: ER 10:36 → PCU 16:33 → MEDS 11-20 00:08
PROVIDERS: Student in an Organized Health Care Education/Training Program; ADMIT Internal Medicine
DX: I61.1 Nontraumatic intracerebral hemorrhage in hemisphere, cortical (principal); G93.6 Cerebral edema; I50.32 Chronic diastolic (congestive) heart failure; G93.49 Other encephalopathy; E87.4 Mixed disorder of acid-base balance; M62.82 Rhabdomyolysis; N17.9 Acute kidney failure, unspecified; Z51.5 Encounter for palliative care; Z66 Do not resuscitate; I11.0 Hypertensive heart disease with heart failure; E11.65 Type 2 diabetes mellitus with hyperglycemia; I25.10 Atherosclerotic heart disease of native coronary artery without angina pectoris; E86.0 Dehydration; J44.9 Chronic obstructive pulmonary disease, unspecified; F17.210 Nicotine dependence, cigarettes, uncomplicated; R29.723 NIHSS score 23; R68.0 Hypothermia, not associated with low environmental temperature; Z96.653 Presence of artificial knee joint, bilateral; Z95.2 Presence of prosthetic heart valve; Z98.49 Cataract extraction status, unspecified eye; Z88.5 Allergy status to narcotic agent; Z79.899 Other long term (current) drug therapy; Z79.891 Long term (current) use of opiate analgesic; Z79.811 Long term (current) use of aromatase inhibitors; Z79.2 Long term (current) use of antibiotics; Z79.51 Long term (current) use of inhaled steroids; Z79.01 Long term (current) use of anticoagulants; Z95.1 Presence of aortocoronary bypass graft; Z98.890 Other specified postprocedural states; Z86.73 Personal history of transient ischemic attack (TIA), and cerebral infarction without residual deficits
CPT/HCPCS: 36415; 70450; 80053; 82010; 82550; 82553; 82803; 82947; 83605; 85025; 85610; 85730; 93005; 93010; 94760; 96365; 96366; 96375; 99285-25; A9270; G0480; J1630; J1815; J1953; J7030; J7050